=== PATIENT | female | born 1980 | race Caucasian/White ===

== ENCOUNTER → 2022-11-21 14:59 | Outpatient (CLI) | payer BC, SELFPAY ==
--- NOTE | ~2022-11-21 | MM_ITS ---
EXAMINATION: MM screening miles BI w rodney HISTORY: Screening mammogram TECHNIQUE: Craniocaudal and mediolateral oblique 3-D tomosynthesis images were obtained and synthetic 2-D images were generated. CAD analysis was submitted and interpreted. COMPARISON: No prior mammogram is available for comparison at this institution. BREAST PARENCHYMAL COMPOSITION: There are scattered areas of fibroglandular density. FINDINGS: Right breast: There is a 1 cm asymmetric irregular opacity in the inner mid to upper right breast. Di agnostic right mammogram and right breast ultrasound examination are recommended. Left breast: There is no evidence of suspicious mass, calcification, or architectural distortion to s uggest malignancy in the left breast. IMPRESSION: 1. Abnormal asymmetric irregular mammographic opacity in the inner mid to upper right breast 2. Diagnostic right mammogram and right breast ultrasound examination are recommended BI-RADS Category 0: Incomplete: Needs additional imaging evaluation. Reviewed, dictated and finalized at location A. IMPRESSION: 1. Abnormal asymmetric irregular mammographic opacity in the inner mid to upper right breast 2. Diagnostic right mammogram and right breast ultrasound examination are recom mended BI-RADS Category 0: Incomplete: Needs additional imaging evaluation.
== END ==
PROVIDERS: PCP Nurse Practitioner Obstetrics & Gynecology; Visit Provider Nurse Practitioner Obstetrics & Gynecology
DX: Z12.31 Encounter for screening mammogram for malignant neoplasm of breast (principal); N64.89 Other specified disorders of breast
CPT/HCPCS: 77063; 77067

== ENCOUNTER → 2022-12-19 07:48 | Outpatient (CLI) | payer BC, SELFPAY ==
--- NOTE | ~2022-12-19 | MMUS_ITS ---
EXAMINATION: MM diagnostic miles RT w rodney, US breast RT limited HISTORY: Asymmetric irregular opacity at anterior medial right breast on 11/21/2022 screening mammogra m TECHNIQUE: Additional 3-D tomosynthesis images of the right breast were performed and synthetic 2-D i mages were generated. CAD analysis was submitted and interpreted. High resolution upper inner and low er inner quadrant right breast ultrasound was performed. COMPARISON: 11/21/2021 bilateral screening mammogram FINDINGS: MAMMOGRAPHIC FINDINGS: No suspicious mass or architectural distortion, malignant calcifications, skin thickening or retracti on is evident. The previously reported asymmetric opacity largely compresses out on coned compression views. ULTRASOUND: There is no sonographic correlate for the mammographic asymmetry reported on 11/21/2022 mammogram. At 12:00 2 cm from the nipple there is an approximately 2.4 x 2.8 x 4 mm circumscribed sonolucency, w ithout internal vascularity, likely a small cyst. At 12:00 3 cm from the nipple there is a similar approximately 2.5 x 3.4 x 3.2 mm circumscribed sonol ucency without internal vascularity, likely a small cyst. No suspicious mass of the upper inner and lower inner quadrants of the right breast is noted. IMPRESSION: 1. Benign findings; no mammographic evidence of malignancy 2. Routine annual mammographic screening is recommended. BI-RADS Category 2: Benign finding(s). Reviewed, dictated and finalized at location A. IMPRESSION: 1. Benign findings; no mammographic evidence of malignancy 2. Routine annual mammographic screening is recommended. BI-RADS Category 2: Benign finding(s).
== END ==
PROVIDERS: PCP Nurse Practitioner Obstetrics & Gynecology; Visit Provider Nurse Practitioner Obstetrics & Gynecology
DX: R92.8 Other abnormal and inconclusive findings on diagnostic imaging of breast (principal)
CPT/HCPCS: 76642; 77061; 77065; G0279

== ENCOUNTER 2025-01-19 12:21 | Emergency (ER) | payer OTHER, SELFPAY ==
[2025-01-19 12:38] VITALS: BP 127/88; PULSE 85; RESP 16; TEMP 36.2; O2SAT 100
--- NOTE | 2025-01-19 14:01 | ED.URI ---
HPI - URI/Sore Throat General Chief Complaint: Upper Respiratory Infection Stated Complaint: URI Time Seen by Provider: 01/19/25 13:55 Source: patient and RN notes reviewed Mode of arrival: ambulatory Limitations: no limitations History of Present Illness HPI Narrative: 44-year-old female patient presents today with a 2 week history of nasal congestion, sinus pressure, headache bilateral ear pain, barking cough with chest wall discomfort. She has tried Tylenol Sinus without relief. Denies fever or shortness of breath. Denies history of asthma or COPD. Related Data Allergies Allergy/AdvReac Type Severity Reaction Status Date / Time No Known Allergies Allergy Verified 01/19/25 12:34 [facility] Comments At time of signature, I have reviewed and agree with nursing past medical, surgical, social and family history unless otherwise noted. Please see nursing chart for further information. There is no relevant family history pertinent to the presenting complaint Exam Narrative: GENERAL: Mildly ill-appearing, well-nourished, and in no acute distress. HEAD: Normocephalic, atraumatic. EYES: EOMI. No redness or drainage. Conjunctivae normal. ENT: Mucous membranes pink and moist. Nares congested with rhinorrhea. TMs normal bilaterally. Throat normal. Uvula midline. NECK: Normal AROM. Supple. No lymphadenopathy. CHEST: No respiratory distress. Clear to auscultation. Harsh cough noted HEART: Regular rate and rhythm. No murmur appreciated. EXTREMITIES: Normal range of motion. No edema. SKIN: Warm, dry, no rash. Capillary refill normal. Normal skin turgor. NEURO: No focal deficits. Alert and oriented x3. Gait steady. PSYCH: Normal affect. No signs of depression or anxiety. Course Course Level of Care: Express Care Visit Vital Signs Vital signs: Vital Signs Temperature 97.1 F L 01/19/25 12:38 Pulse Rate 85 01/19/25 12:38 Respiratory Rate 16 01/19/25 12:38 Blood Pressure 127/88 01/19/25 12:38 Pulse Oximetry 100 01/19/25 12:38 Oxygen Delivery Room Air 01/19/25 12:38 Temperature 97.1 F L 01/19/25 12:38 Pulse Rate 85 01/19/25 12:38 Respiratory Rate 16 01/19/25 12:38 Blood Pressure 127/88 01/19/25 12:38 Pulse Oximetry 100 01/19/25 12:38 Oxygen Delivery Room Air 01/19/25 12:38 Review MDM - URI/Sore Throat MDM Narrative Medical decision making narrative: 44-year-old female patient presents today with a 2 week history of nasal congestion, sinus pressure, headache bilateral ear pain, barking cough with chest wall discomfort. She has tried Tylenol Sinus without relief. Denies fever or shortness of breath. Denies history of asthma or COPD. Upon exam, patient is mildly ill appearing with nasal congestion and harsh cough. She will be treated with Augmentin and prednisone for sinusitis, bronchitis. Declines cough medicine. Patient agrees with plan. Vital signs stable. Anticipatory guidance given. Differential Diagnosis Differential diagnosis: Likely upper respiratory infection, otitis media, sinusitis, viral infection, bronchitis and other (Pneumonia) Critical Care Time Critical Care Time Critical Care Time: No Discharge Plan Discharge Clinical Impression: Bronchitis Sinusitis Qualifiers: Sinusitis location: unspecified location Chronicity: acute Recurrence: non-recurrent Qualified Code(s): J01.90 - Acute sinusitis, unspecified Patient Disposition: Home Condition: Stable Instructions: Antibiotic Form, Sinusitis (ED), Acute Bronchitis (ED) Additional Instructions: Please take the Augmentin and prednisone as directed. You may continue [id number] medication as needed. Follow-up with your PCP in 3 days if symptoms are not improving. Go to the ER immediately if symptoms worsen to include development of new fever greater than 100.3, shortness of breath. Patient Language: Mauritanian Prescriptions: New prednisone 50 mg tablet 50 mg PO DAILY 5 Days Qty: 5 0RF amoxicillin-pot clavulanate 875-125 mg tablet 1 tablet PO Q12H 7 Days Qty: 14 0RF Follow-up/Referrals: Yaron,Dali Tovar, CARLOS [Primary Care Provider, Unknown] Time of Disposition: 14:04
--- OUTSIDE RECORDS SUMMARY | 2025-01-19 14:09 | XMS_ITS | Encounter Summary ---
Author Organization [facility] Address [facility] [place] [address] Care Team Providers Care Embedded Systems Developer Name Role Phone Marybeth Rolon IRA [facility] Primary Care Provider + Encounter Details Date Type Department Care Team (Late st Contact Info) Description 08/04/2021 Crack Message Enc [facility] [address] [address] [place], [facility] Provider echo results Social History Tobacco Use Types Packs/Day Years Used Date Smoking Tobacco: Never Smokeless Tobacco: Never Alcohol Use Standard Drinks/Week Comments Yes 0 (1 standard drink = 0.6 oz pur e alcohol) 1x/month Comments Unknown Sex and Gender Information Value Date Recorded Sex Assigned at Not on file Legal Sex Female 9:28 PM GAS TURBINE MECHANIC Gender Identity Not on file Sexual Orientation Not on file 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 No / Unsure 08/01/2021 1:18 PM CDT documented as of this encounter Plan of Treatment Not on file documented as of this encounter Visit Diagnoses Not on filedocumented in this encounter Care Teams Embedded Systems Developer Relationship Specialty Start Date End Date [facility]on [facility] [address] [place] [id number] PCP - General NURSE PRACTITIONER 06/07/21 documented as of this encounter
--- OUTSIDE RECORDS SUMMARY | 2025-01-19 14:10 | XMS_ITS | Clinical Summary ---
Author Organization [facility] [address] Address [address] [place] [address] Care Team Providers Care Marriage And Family Teacher Name Role Phone Oumar Villasenor MD Primary Care Provider [phone] Dali Marrufo HEATING ELEMENT BUILDER Unavailable [phone] Allergies No known active allergies Medications pantoprazole DR (PROTONIX) 40 mg EC tablet take 1 tablet by ORAL route 2 times every day 0 0 6 Active escitalopram (LEXAPRO) 5 mg tablet 5 mg. 0 0 6 Active sodium, potassium & mag sulfates (SUPREP BOWEL PREP KIT) 17.5-3.13-1.6 gram recon soln take as directed for Colonoscopy bowel prep 1 kit 0 6 Active Family History Medical History Relation Name Comments Other Other 1 No family histo ry of Cancer, colon; Other Other 2 No family histo ry of Celiac disease; Other Other 3 No family histo ry of Colon polyps; Other Other 4 No family histo ry of Crohn's disease; Other Other 5 No family histo ry of Ulcerative colitis; Relation Name Status Comments Other 1 Other 2 Other 3 Other 4 Other 5 Social History Tobacco Use Types Packs/Day Years Used Date Smoking Tobacco: Never Alcohol Use Standard Drinks/Week Comments No 0 (1 standard drink = 0.6 oz pur e alcohol) Comments Unknown Sex and Gender Information Value Date Recorded Sex Assigned at Not on file Legal Sex Female 9:19 PM ONCOLOGY REGISTRAR Gender Identity Not on file Sexual Orientation Not on file Last Filed Vital Signs Vital Sign Reading Time Taken Comments Blood Pressure 109/76 03/25/2015 11:24 AM ONCOLOGY REGISTRAR Pulse 94 03/25/2015 11:24 AM ONCOLOGY REGISTRAR Temperature - - Respiratory Rate - - Oxygen Saturation 96% 02/25/2015 11:12 AM ONCOLOGY REGISTRAR Inhaled Oxygen Concentration - - Weight 102.5 kg (226 lb) 03/25/2015 11:24 AM ONCOLOGY REGISTRAR Height 160 cm (5' 3) 02/25/2015 6:39 AM ONCOLOGY REGISTRAR Body Mass Index 40.03 02/25/2015 6:39 AM ONCOLOGY REGISTRAR Plan of Treatment Health Maintenance Due Date Last Done Comments Cervical Cancer Screening 1979 Depression Screening 1979 Hepatitis C Screening 1979 Varicella Vaccines (1 of 2 - 13+ 2-dose series) 06/02/1992 Hepatitis B Screening 06/02/1997 Regular Well Visit/Exam 18-64 06/02/1997 HPV Vaccines (1 - 3-dose SCD M series) 06/02/2006 Influenza Vaccine (#1) 2024 Colon Cancer Screening-Colonoscopy 04/08/2025 04/08/2015 Breast Cancer Screening-Mammogram 05/02/2025 05/02/2024, 07/05/2021, 07/05/2021 DTaP/Tdap/Td Vaccine (2 - Td or Tdap) 05/09/2028 05/09/2018 Pneumococcal vaccine <65 Aged Out No longer eligible based on patient's age to complete this topic Procedures Procedure Name Priority Date/Time Associated Diagnosis Comments SCREENING MAMMOGRAM BILATERAL W RODRIGO Schedule Routine, Read Routine (OP Routine) 05/02/2024 3:32 PM ONCOLOGY REGISTRAR Encounter for screening mammogram for malignant neoplasm of breast COLONOSCOPY REPORT 04/08/2015 from Last 3 Months or Most Recently Relevant to Health Maintenance Results * Screening Mammogram Bilateral W Rodrigo (05/02/2024 3:32 PM ONCOLOGY REGISTRAR) Anatomical Region Laterality Modality Breast Bilateral Mammography Narrative 05/05/2024 11:51 AM CDT Mammogram Technique: Bilateral Digital Breast Tomosynthesis, Bilateral C-view 2D Screening mammogram. Views obtained: bilateral craniocaudal and bilateral mediolateral oblique. Computer Aided Detection was performed. Mammogram Findings: The present examination has been compared to a prior imaging study performed at [facility] on 07/05/2021. There are scattered areas of fibroglandular density. There is no suspicious abnormality in either breast. Impression: There is no mammographic evidence of malignancy. Annual screening mammography is recommended. OVERALL FINAL ASSESSMENT: BI-RADS CATEGORY 1: Negative. Procedure Note Trupti Hu MD - 05/05/2024 Mammogram Technique: Bilateral Digital Breast Tomosynthesis, Bilateral C-view 2D Screening mammogram. Views obtained: bilateral craniocaudal and bilateral mediolateral oblique. Computer Aided Detection was performed. Mammogram Findings: The present examination has been compared to a prior imaging study performed at [facility] on 07/05/2021. There are scattered areas of fibroglandular density. There is no suspicious abnormality in either breast. Impression: There is no mammographic evidence of malignancy. Annual screening mammography is recommended. OVERALL FINAL ASSESSMENT: BI-RADS CATEGORY 1: Negative. Dali Marrufo NP IMG MAMMO PROCEDURES Fi nal Result * COLONOSCOPY REPORT (04/08/2015) Anatomical Region Laterality Modality Other Narrative 04/08/2015 Ordered by an unspecified provider. Historical Provider MD NAGY PROCEDURE ORDERABLES F inal Result from Last 3 Months or Most Recently Relevant to Health Maintenance Insurance [facility] AETNA COVENTRY HMO/POS AETNA COVENTRY HMO/POS Care Teams Marriage And Family Teacher Relationship Specialty Start Date End Date Oumar Villasenor MD [address] [place] [address] [place] [address] PCP - General Family Medicine 04/15/24 Dali Marrufo NP [address] [place] [address] Nurse Practitioner 04/15/24
--- OUTSIDE RECORDS SUMMARY | 2025-01-19 14:10 | XMS_ITS | Encounter Summary ---
Author Organization [facility] Address [facility] [place] [address] Care Team Providers Care Motor Overhauler Name Role Phone Gonzales, Marybeth Mao [facility] Primary Care Provider + Encounter Details Date Type Department Care Team (Late st Contact Info) Description 06/27/2021 Abstract [facility] [place] [id number] [facility] [address] [place] [address] Prasanth Garcia, A Social History Tobacco Use Types Packs/Day Years Used Date Smoking Tobacco: Never Smokeless Tobacco: Never Alcohol Use Standard Drinks/Week Comments Yes 0 (1 standard drink = 0.6 oz pur e alcohol) 1x/month Comments Unknown Sex and Gender Information Value Date Recorded Sex Assigned at Not on file Legal Sex Female 9:28 PM TOBACCO WEIGHER Gender Identity Not on file Sexual Orientation Not on file 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 No / Unsure 06/27/2021 9:39 AM CDT documented as of this encounter Plan of Treatment Not on file documented as of this encounter Procedures Procedure Name Priority Date/Time Associated Diagnosis Comments FREE T3 Routine 06/22/2021 IRON BINDING TEST Routine 06/22/2021 THYROXINE, FREE (FT4) Routine 06/22/2021 THYROID STIM HORMONE TSH Routine 06/22/2021 IRON Routine 06/22/2021 FERRITIN Routine 06/22/2021 TROPONIN WHOLE BLOOD Routine 06/15/2021 CBC (OUTSIDE LAB) Routine 06/15/2021 COMPREHENSIVE METABOLIC PANEL Routine 06/15/2021 THYROID STIM HORMONE TSH Routine 06/15/2021 documented in this encounter Results * THYROXINE, FREE (FT4) (06/22/2021) FREE T4 1.2 06/22/2021 [facility]AT[facility] Final Result * THYROID STIM HORMONE, TSH (06/22/2021) TSH 2.08 06/22/2021 us Doc [facility] Final Result * FREE T3 (06/22/2021) FREE T3 3.1 06/22/2021 us [facility] Final Result * FERRITIN (06/22/2021) FERRITIN 7 06/22/2021 us [facility] Final Result * IRON (06/22/2021) IRON 43 06/22/2021 [facility] Final Result * IRON BINDING TEST (06/22/2021) Pathologist [facility] IRON BINDING CAPACITY 357 06/22/2021 us [facility] Final Result * TROPONIN WHOLE BLOOD (06/15/2021) [facility] TROPONIN I <0.01 06/15/2021 us [facility] Final Result * THYROID STIM HORMONE, TSH (06/15/2021) [facility] TSH 2.05 06/15/2021 us Doc [facility] Final Result * COMPREHENSIVE METABOLIC PANEL (06/15/2021) [facility] SODIUM S/P/B 141 POTASSIUM S/P/B 3.7 CO2 26 CHLORIDE S/P/B 106 GLUCOSE 95 mg/dL CALCIUM S/P/B 9.0 BUN 15 CREATININE S/P/B 0.7 0.5 - 1.0 ALKALINE PHOSPHATASE S/P/B 69 ALT 21 AST 23 BILIRUBIN TOTAL S/P/B 0.3 ALBUMIN S/P/B 4.5 3.5 - 5.0 TOTAL PROTEIN S/P/B 7.9 06/15/2021 us Doc [facility] Final Result * CBC (OUTSIDE LAB) (06/15/2021) [facility] WBC 6.1 HGB 129 HCT 407 PLT 298 RBC 4.95 06/15/2021 [facility] Doc [facility] Abstract LAB-OUTSIDE/ABSTRACTED Final Result documented in this encounter Visit Diagnoses Not on filedocumented in this encounter Care Teams Motor Overhauler Relationship Specialty Start Date End Date Marybeth Rolon, INDOOR LANDSCAPER/GARDENER-BC [address] [place] [address] PCP - General NURSE PRACTITIONER 06/07/21 documented as of this encounter
--- OUTSIDE RECORDS SUMMARY | 2025-01-19 14:10 | XMS_ITS | Clinical Summary ---
Author Organization [facility] Address [address] [place] [address] Care Team Providers Care Cyanide Case Hardener Name Role Phone Marybeth Rolon Mao [facility] Primary Care Provider + Allergies No known active allergies Medications ENBREL SURECLICK 50 MG/ML Solution Auto-injector injection Inject 50 mg into the skin once a week. 06/07/2021 Active venlafaxine XR 75 MG 24 hr capsule Take 75 mg by mouth daily. 06/24/2021 Active methotrexate 2.5 MG tablet Take 8 tablets by mouth once a week. 11/04/2020 Active Active Problems Problem Noted Date Diagnosed Date Anxiety 06/27/2021 Rheumatoid factor positive 06/13/2018 Fibromyalgia 06/13/2018 Hyperlipidemia 05/09/2018 Antinuclear factor positive 05/09/2018 Palpitations 06/06/2017 Family History Medical History Relation Comments Diabetes Father Thyroid Disease Father Afib Mother Hypertension Mother Pacemaker Mother No Known Problems Paternal Grandfather No Known Problems Paternal Grandmother Relation Status Comments Brother Alive Father Alive Maternal Grandfather Maternal Grandmother Mother Alive Paternal Grandfather Paternal Grandmother Social History Tobacco Use Types Packs/Day Years Used Date Smoking Tobacco: Never Smokeless Tobacco: Never Alcohol Use Standard Drinks/Week Comments Yes 0 (1 standard drink = 0.6 oz pur e alcohol) 1x/month Comments Unknown Sex and Gender Information Value Date Recorded Sex Assigned at Not on file Legal Sex Female 9:28 PM INSIDE HORTICULTURAL SPECIALTY GROWER Gender Identity Not on file Sexual Orientation Not on file 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 Not on file Not on f ile Last Filed Vital Signs Vital Sign Reading Time Taken Comments Blood Pressure 94/66 06/27/2021 9:47 AM CDT Pulse 105 06/27/2021 9:47 AM CDT Temperature - - Respiratory Rate - - Oxygen Saturation 99% 06/27/2021 9:47 AM CDT Inhaled Oxygen Concentration - - Weight 101.6 kg (224 lb) 06/27/2021 9:47 AM CDT Height 162.6 cm (5' 4) 06/27/2021 9:47 AM CDT Body Mass Index 38.45 06/27/2021 9:47 AM CDT Plan of Treatment Health Maintenance Due Date Last Done Comments Cervical Cancer Screening Pa p Smear (Age 30 to 64) Every 3 Years 1979 Colorectal Cancer Screening Colonoscopy (10 Years) 1979 Annual Physical 06/02/1982 COVID-19 Vaccine (#1) 06/02/1984 Hepatitis C 06/02/1997 Hepatitis B Vaccines (1 of 3 - 19+ 3-dose series) 06/02/1998 HPV Vaccines (1 - 3-dose SCD M series) 06/02/2006 Cervical Cancer Screening Pa p with HPV Testing (Age 30 to 64) Every 5 Years 06/02/2009 Cervical Cancer Screening with HPV 06/02/2009 Mammogram Screening 2019 Influenza Adult (#1) 2024 DTaP, Tdap and Td Vaccines ( 2 - Td or Tdap) 05/09/2028 05/09/2018 Hepatitis A Vaccines Aged Out No long er eligible based on patient's age to complete this topic Meningococcal B Vaccine Aged Out No l onger eligible based on patient's age to complete this topic Meningococcal Vaccine Aged Out No chaz cydney eligible based on patient's age to complete this topic Pneumococcal Vaccine: Pediat rics (0 to 5 Years) and At-Risk Patients (6 to 49 Years) Aged Out No longer eligi ble based on patient's age to complete this topic RSV Immunizations Under 20 Months Aged Out No longer eligible based on patient's age to complete this topic Insurance [facility] Care Teams Cyanide Case Hardener Relationship Specialty Start Date End Date Marybeth Rolon, CORPORATE DIRECTOR- [address] [address] PCP - General NURSE PRACTITIONER 06/07/21
--- OUTSIDE RECORDS SUMMARY | 2025-01-19 14:10 | XMS_ITS | Data Portability ---
Author Organization [facility] Address [address] [place] [address] Care Team Providers [facility] Manager Name Role Phone MEMO CARVALHO OTHER Assessment Encounter Date Assessment Date Assessment LastModified by Organization Details LastModified Time 11/14/2022 11/14/2022 Today we agreed to start a work up for multiple complaints. We will fax any results to appropriate specialist if required. We will update TVUS for menorrhagia with increasingly worse dysmenorrhea. Discussed perimenopause. Understanding verbalized Recommendations for reading material given WIll refer as needed Needs WWE Time spent in visit is a total of 30 mins with at least 50% of visit consisting of counseling and review of plan of care. [email or web address] Not available 11/14/2022 19:10:04 11/21/2022 11/21/2022 Annual gynecological exam performed. Patient will come back in a year unless there are new symptoms. [email or web address] Not available 11/21/2022 09:09:39 Plan of Treatment Reminders Order Date Submit Date Provider Last Modified By Organization Details Last Modified Time Details Appointments None recorded. Lab vitamin B12, serum 2022 023 [facility] (Lab), [address], [place], [address], 3 16:00:16 vitamin D, 25-hydroxy, total, serum 2022 023 [facility] (Lab), [address], [place], [address], 3 16:00:17 testosteron e, total, serum 2022 023 [facility] (Lab), [address], [place], [address], 3 16:00:14 17-hydroxyp rogesterone , QN, serum 2022 023 [facility] (Lab), [address], [place], [address], 3 16:00:19 hormone panel, serum or plasma 2022 023 [facility] (Lab), [address], [place], [address], 3 16:00:18 prolactin, serum 2022 023 [facility] (Lab), [address], [place], [address], 3 16:00:17 CMP, serum or plasma 2022 023 [facility] (Lab), [address] [place], [address], 3 16:00:15 lipid panel, blood 2022 023 [facility] (Lab), [address], [place], [address], 3 16:00:15 CBC w/ auto diff 2022 023 [facility] (Lab), [address] [place], [address], 3 16:00:13 HbA1c (hemoglobin A1c), blood 2022 023 [facility] (Lab), [address] [place], [address], 3 16:00:18 TSH, serum or plasma 2022 023 [facility] (Lab), [address], [place], [address], 3 16:00:16 Referral None recorded. Procedures None recorded. Surgeries None recorded. Imaging MAMMO, screening, digital, bilateral 2022 023 [facility], [facility] [id number], [place], [address], 3 17:57:31 US, pelvis 2022 023 [email or web address] [facility], [address], [address], [place], [address], 3 12:45:11 US, transvagina l 2022 023 [facility], [address], [address], [place], [address], 3 12:45:11 US, pelvis, complete 2022 023 [email or web address] [facility], [address], [address], [place], [address], 3 09:56:20 US, pelvis 2021 022 [email or web address] [facility], [address], [address], [place], [address], 2 22:21:38 US, transvagina l 2021 022 [email or web address] [facility], [address], [address], [place], [address], 2 22:21:38 Medication Orders Slynd 4 mg (28) tablet 2022 023 KENNETH [id number], [address], [place], [place], [id number], 3 09:40:13 Vitamin D2 1,250 mcg (50,000 unit) capsule 2022 023 [place] [id number], [address], [place], [place], [id number], 3 09:24:16 Slynd 4 mg (28) tablet 2022 023 [email or web address] Not available 3 14:10:33 Patient TargetsNo targets recorded. Patient InstructionsNo instructions recorded. Reason for Referral None Reported. Results Created Date Observation Date Name Description Value Unit Range Abnormal Flag Note LastModifiedBy Organization Detail LastModifiedTime 11/15/1911/14/2022 CBC W/DIF F WBC 6.3 10'3/ uL 3.6-10 .2 Not Available [facility] (Lab) [address] [place], [address], 11/21/2022 16:00:13 11/15/19 23 11/14/2022 CBC W/DIF F RBC 4.51 10'6/ uL (based on docume nted legal sex) 4.10-5 .30 Not Available [facility] (Lab) [address] [place], [address], 11/21/2022 16:00:13 11/15/19 23 11/14/2022 CBC W/DIF F HGB 11.4 g/dL (based on docume nted legal sex) 11.9-1 5.8 low Not Available [facility] (Lab) [address] [place], [address], 11/21/2022 16:00:13 11/15/19 23 11/14/2022 CBC W/DIF F HCT 37.0 % (based on docume nted legal sex) 37.4-4 8.3 low Not Available [facility] (Lab) [address], [place], [address], 11/21/2022 16:00:13 11/15/19 23 11/14/2022 CBC W/DIF F MCV 82.0 fL 82.0-9 9.0 Not Available [facility] (Lab) [address], [place], [address], 11/21/2022 16:00:13 11/15/19 23 11/14/2022 CBC W/DIF F MCH 25.3 pg 27.0-3 3.0 low Not Available [facility] (Lab) [address], [place], [address], 11/21/2022 16:00:13 11/15/19 23 11/14/2022 CBC W/DIF F MCHC 30.8 g/dL 32.0-3 6.0 low Not Available [facility] (Lab) [address], [place], [address], 11/21/2022 16:00:13 11/15/19 23 11/14/2022 CBC W/DIF F RDW 15.7 % 11.0-1 5.0 high Not Available [facility] (Lab) [address], [place], [address], 11/21/2022 16:00:13 11/15/19 23 11/14/2022 CBC W/DIF F plt 297 10'3/ uL 150-45 0 Not Available [facility] (Lab) [address], [place], [address], 11/21/2022 16:00:13 11/15/19 23 11/14/2022 CBC W/DIF F MPV 13.0 fL 9.8-12 .7 high Not Available [facility] (Lab) [address], [place], [address], 11/21/2022 16:00:13 11/15/19 23 11/14/2022 CBC W/DIF F NRBC's 0.0 % 0 Not Available [facility] (Lab) [address], [place], [address], 11/21/2022 16:00:13 11/15/19 23 11/14/2022 CBC W/DIF F absolute NRBCs 0.0 10'3/ uL 0 Not Available [facility] (Lab) [address], [place], [address], 11/21/2022 16:00:13 11/15/19 23 11/14/2022 CBC W/DIF F neutrophils 47.2 % 37.0-7 2.0 Not Available [facility] (Lab) [address], [place], [address], 11/21/2022 16:00:13 11/15/19 23 11/14/2022 CBC W/DIF F lymphocytes 41.2 % 16.0-4 8.0 Not Available [facility] (Lab) [address], [place], [address], 11/21/2022 16:00:13 11/15/19 23 11/14/2022 CBC W/DIF F monocytes 6.2 % 4.0-14 .0 Not Available [facility] (Lab) [address], [place], [address], 11/21/2022 16:00:13 11/15/19 23 11/14/2022 CBC W/DIF F eosinophils 4.3 % 0.0-9. 0 Not Available [facility] (Lab) [address], [place], [address], 11/21/2022 16:00:13 11/15/19 23 11/14/2022 CBC W/DIF F basophils 0.9 % 0.0-2. 0 Not Available [facility] (Lab) [address], [place], [address], 11/21/2022 16:00:13 11/15/19 23 11/14/2022 CBC W/DIF F immature granulocytes 0.2 % no define d refere nce range Not Available [facility] (Lab) [address], [place], [address], 11/21/2022 16:00:13 11/15/19 23 11/14/2022 CBC W/DIF F absolute neutrophils 3.0 10'3/ uL 1.1-6. 0 Not Available [facility] (Lab) [address], [place], [address], 11/21/2022 16:00:13 11/15/19 23 11/14/2022 CBC W/DIF F absolute lymphocytes 2.6 10'3/ uL 0.7-3. 4 Not Available [facility] (Lab) [address], [place], [address], 11/21/2022 16:00:13 11/15/19 23 11/14/2022 CBC W/DIF F absolute monocytes 0.4 10'3/ uL 0.3-1. 0 Not Available [facility] (Lab) [address], [place], [address], 11/21/2022 16:00:13 11/15/19 23 11/14/2022 CBC W/DIF F absolute eosinophils 0.3 10'3/ uL 0.0-0. 6 Not Available [facility] (Lab) [address], [place], [address], 11/21/2022 16:00:13 11/15/19 23 11/14/2022 CBC W/DIF F absolute basophils 0.1 10'3/ uL 0.0-0. 1 Not Available [facility] (Lab) [address], [place], [address], 11/21/2022 16:00:13 11/15/19 23 11/14/2022 CBC W/DIF F absolute immature granulocytes 0.0 10'3/ uL 0.00-0 .10 2022 3:13 AM: P indic ates parti al resul ts on a panel have been relea sed. Addit ional resul ts will follo w. 2022 3:13 AM: This resul t has been final verif ied. No addit ional or pitts ed resul ts are expec bonita. Not Available [facility] (Lab) [address], [place], [address], 11/21/2022 16:00:13 11/15/19 23 11/14/2022 TESTO STERO NE, TOTAL testosterone , total 44 NG/dL 0-100 Not Available [facility] (Lab) [address], [place], [address], 11/21/2022 16:00:14 11/15/19 23 11/14/2022 LIPID PANEL ,AMA (LDL- CALC) total cholesterol 170 mg/dL 0-199 Not Available [facility] (Lab) [address] [place], [address], 11/21/2022 16:00:14 11/15/19 23 11/14/2022 LIPID PANEL ,AMA (LDL- CALC) triglyceride s 113 mg/dL 0.00-1 50.00 NCEP Refer ence Value s for Trigl yceri geena: Agnes l: <150 mg/dL Borde rline High: 150 - 199 mg/dL High: 200 - 499 mg/dL Very High: >/= 500 mg/dL Not Available [facility] (Lab) [address] [place], [address], 11/21/2022 16:00:14 11/15/19 23 11/14/2022 LIPID PANEL ,AMA (LDL- CALC) HDL cholesterol 45 mg/dL >40 Not Available [facility] (Lab) [address] [place], [address], 11/21/2022 16:00:14 11/15/19 23 11/14/2022 LIPID PANEL ,AMA (LDL- CALC) LDL cholesterol 104 mg/dL 0-99 high Cutof f value s recom lucero d by the Natio nal Jenna stero l Educa tion Progr am: MARY ABLE: Jenna stero l <200 mg/dL LDL <100 mg/dL BORDE RLINE : Jenna stero l 200-2 39 mg/dL LDL 101-1 59 mg/dL HIGHE R RISK: Jenna stero l >240 mg/dL LDL >160 mg/dL , HDL <40 mg/dL Not Available [facility] (Lab) [address], [place], [address], 11/21/2022 16:00:14 11/15/1911/14/2022 LIPID PANEL ,AMA (LDL- CALC) non-HDL cholesterol 125 mg/dL no refere nce range A reaso nable goal for non-H DL jenna stero l is one that is 30 mg/dL highe r than the LDL jenna stero l goal. Not Available [facility] (Lab) [address], [place], [address], 11/21/2022 16:00:14 11/15/1911/14/2022 LIPID PANEL ,AMA (LDL- CALC) chol/HDL ratio 3.8 . 0.0-5. 0 On June 20, 2022, [facility] labor atori juliocesar pitts ed the equat ion for calcu latin g estim ated low-d ensit y lipop rotei n-cho leste rol (LDL- C) from the Corinne sweetald equat ion to the Jessica soriano/David arredondo equat ion. This new equat ion is only valid for lipid panel s with trigl yceri geena < 400 mg/dL . Studi es have demon strat ed that this new equat ion will impro ve the accur acy of LDL-C , espec ially in [place] when LDL-C saida ntrat ions are relat ively low (< 100 mg/dL ), trigl yceri geena are eleva bonita, or patie nt is non-f astin g. Refer ences : - Pierre Miller, Niraj Toro , Mirza fuller, Nii Zuniga, Iraj [facility]if [facility] , and Samuel Martin . 2013. Comp ariso n of a Novel Metho d vs the Fried gary Equat ion for Estim ating Low-D ensit y Lipop rotei n Jenna stero l Level s from the Stand ming Lipid Profshannon farrar. NELIA: The Journ al of the Ameri can Medic al Assoc iatio n 310 (19): 2060- . - Binta alston V, Sindi J, Liliya alston A, Diandra M, Heidi booker R, Taras alston E, Mary patel RS, Mario SR, Jessica soriano SS. Fast ing Versu s Nonfa sting and Low-D ensit y Lipop rotei n Jenna stero l Accur acy. Circu latio n. 2017Feb 27;137 (1):1 0-19. Not Available [facility] (Lab) [address], [place], [address], 11/21/2022 16:00:14 11/15/19 23 11/14/2022 CMP(C OMPRE HENSI VE METAB OLIC PANEL ) sodium 143 mmol/ L 133-14 6 Not Available [facility] (Lab) [address], [place], [address], 11/21/2022 16:00:15 11/15/19 23 11/14/2022 CMP(C OMPRE HENSI VE METAB OLIC PANEL ) potassium 4.0 mmol/ L 3.5-5. 1 Not Available [facility] (Lab) [address], [place], [address], 11/21/2022 16:00:15 11/15/19 23 11/14/2022 CMP(C OMPRE HENSI VE METAB OLIC PANEL ) chloride 106 mmol/ L 98-107 Not Available [facility] (Lab) [address], [place], [address], 11/21/2022 16:00:15 11/15/19 23 11/14/2022 CMP(C OMPRE HENSI VE METAB OLIC PANEL ) carbon dioxide 30 mmol/ L 21-31 Not Available [facility] (Lab) [address], [place], [address], 11/21/2022 16:00:15 11/15/19 23 11/14/2022 CMP(C OMPRE HENSI VE METAB OLIC PANEL ) anion gap 7 mmol/ L 4-13 Not Available [facility] (Lab) [address], [place], [address], 11/21/2022 16:00:15 11/15/19 23 11/14/2022 CMP(C OMPRE HENSI VE METAB OLIC PANEL ) blood urea nitrogen 10 mg/dL 7-25 Not Available [facility] (Lab) [address], [place], [address], 11/21/2022 16:00:15 11/15/19 23 11/14/2022 CMP(C OMPRE HENSI VE METAB OLIC PANEL ) creatinine 0.89 mg/dL 0.60-1 .30 Not Available [facility] (Lab) [address], [place], [address], 11/21/2022 16:00:15 11/15/19 23 11/14/2022 CMP(C OMPRE HENSI VE METAB OLIC PANEL ) egfrcr (CKD-epi 2020) 82 mL/mi n/1.7 3_m2 >=60 Not Available [facility] (Lab) [address], [place], [address], 11/21/2022 16:00:15 11/15/19 23 11/14/2022 CMP(C OMPRE HENSI VE METAB OLIC PANEL ) calcium 9.6 mg/dL 8.3-10 .5 Not Available [facility] (Lab) [address], [place], [address], 11/21/2022 16:00:15 11/15/19 23 11/14/2022 CMP(C OMPRE HENSI VE METAB OLIC PANEL ) glucose 92 mg/dL 70-100 Not Available [facility] (Lab) [address] [place], [address], 11/21/2022 16:00:15 11/15/19 23 11/14/2022 CMP(C OMPRE HENSI VE METAB OLIC PANEL ) protein, total 7.0 g/dL 6.4-8. 3 Not Available [facility] (Lab) [address], [place], [address], 11/21/2022 16:00:15 11/15/19 23 11/14/2022 CMP(C OMPRE HENSI VE METAB OLIC PANEL ) albumin 3.8 g/dL 3.5-5. 0 Not Available [facility] (Lab) [address], [place], [address], 11/21/2022 16:00:15 11/15/19 23 11/14/2022 CMP(C OMPRE HENSI VE METAB OLIC PANEL ) ALT 12 units /L 9-43 Not Available [facility] (Lab) [address], [place], [address], 11/21/2022 16:00:15 11/15/19 23 11/14/2022 CMP(C OMPRE HENSI VE METAB OLIC PANEL ) alkaline phosphatase 65 units /L 34-104 Not Available [facility] (Lab) [address], [place], [address], 11/21/2022 16:00:15 11/15/19 23 11/14/2022 CMP(C OMPRE HENSI VE METAB OLIC PANEL ) AST 12 units /L 13-39 low Not Available [facility] (Lab) [address], [place], [address], 11/21/2022 16:00:15 11/15/19 23 11/14/2022 CMP(C OMPRE HENSI VE METAB OLIC PANEL ) bilirubin, total 0.3 mg/dL 0.2-1. 2 Not Available [facility] (Lab) [address] [place], [address], 11/21/2022 16:00:15 11/15/19 23 11/14/2022 TSH, REFLE X FREE T4 TSH 1.53 uIU/m L 0.30-5 .33 Not Available [facility] (Lab) [address], [place], [address], 11/21/2022 16:00:16 11/15/19 23 11/14/2022 VITAM IN B12 vitamin B12 291 pg/mL 180-91 4 Agnes l Range : 180-9 14 pg/mL . Indet ermin ate Range : 145-1 80 pg/mL . Defic ient Range : <=145 pg/mL . Not Available [facility] (Lab) [address], [place], [address], 11/21/2022 16:00:16 11/15/19 23 11/14/2022 VITAM IN D, 25-OH (TOTA L D2/D3 ) vitamin D, 25-hydroxy, total 27.0 NG/mL 30.0-1 00.0 low Sugge stive of Defic iency : <20 ng/mL Sugge stive of Insuf ficie ncy: 20-29 ng/mL Sugge stive of Suffi cienc y: 30-10 0 ng/mL Sugge stive of Toxic ity: >150 ng/mL Not Available [facility] (Lab) [address], [place], [address], 11/21/2022 16:00:17 11/15/19 23 11/14/2022 PROLA CTIN prolactin, total 12.40 NG/mL 4.79-2 3.30 This assay was perfo rmed using [employer] ratio n reage nts and test kits. Value s obtai elzbieta with other assay metho ds or kits canno t be used inter pitts eably . Not Available [facility] (Lab) [address], [place], [address], 11/21/2022 16:00:17 11/15/19 23 11/14/2022 HEMOG LOBIN A1C hemoglobin A1C 5.2 % 0-5.6 The Ameri can Diabe iris Assoc iatio n recom mends that a prima ry goal of thera py celestine d be a HBA1C of < 7% and that physi cians shoul d reeva luate the treat ment regim en in patie nts with HBA1C value s consi stent ly > 8%. <5.7% Agnes l 5.7 - 6.4% Incre ased risk for diabe iris >=6.5 % Diagn ostic of diabe iris <7.0% Goal of thera py >8.0% Actio n sugge sted Not Available [facility] (Lab) [address], [place], [address], 11/21/2022 16:00:17 11/15/19 23 11/14/2022 FSH, LH, ESTRA DIOL estradiol 141.0 pg/mL This assay was perfo rmed using [employer] ratio n reage nts and test kits. Value s obtai elzbieta with other assay metho ds or kits canno t be used inter pitts eably . Femal e Estra diol Range s: Folli cular phase 12.4- 233 pg/mL Ovula tion phase 41.0- 398 pg/mL Lutea l phase 22.3- 341 pg/mL Postm enopa usal< 5-138 pg/mL Healt hy Pregn ant Women 1st Trime ster1 54-32 43 pg/mL 2nd Trime ster1 561-2 1280 pg/mL 3rd Trime ster8 525-> 92309 pg/mL Not Available [facility] (Lab) [address], [place], [address], 11/21/2022 16:00:18 11/15/19 23 11/14/2022 FSH, LH, ESTRA DIOL FSH 6.0 mIU/m L This assay was perfo rmed using [employer] ratio n reage nts and test kits. Value s obtai elzbieta with other assay metho ds or kits canno t be used inter pitts eably . Femal es Folli cular : 3.5-1 2.5 mIU/m L Ovula tion: 4.7-2 1.5 mIU/m L Lutea l: 1.7-7 .7 mIU/m L Postm enopa use: 25.8- 134.8 mIU/m L Not Available [facility] (Lab) [address], [place], [address], 11/21/2022 16:00:18 11/15/19 23 11/14/2022 FSH, LH, ESTRA DIOL LH 13.1 mIU/m L This assay was perfo rmed using [employer] ratio n reage nts and test kits. Value s obtai elzbieta with other assay metho ds or kits canno t be used inter pitts eably . Femal es Mid-F ollic ular: 2.4-1 2.6 mIU/m L Mid-C ycle: 14.0- 95.6 mIU/m L Mid-L uteal : 1.0-1 1.4 mIU/m L Postm enopa use: 7.7-5 8.5 mIU/m L Not Available [facility] (Lab) [address], [place], [address], 11/21/2022 16:00:18 11/15/19 23 11/14/2022 17-OH PROGE STERO NE 17-hydroxypr ogesterone, lc/MS/MS 27 NG/dL Adult Femal e Refer ence Range s for 17-Hy droxy proge stero ne: Pre-M enopa usal Mid Folli cular : 23-10 2 ng/dL Pre-M enopa usal Surge : 67-34 9 ng/dL Pre-M enopa usal Mid Lutea l: 139-4 31 ng/dL Postm enopa usal Phase : < or = 45 ng/dL Pregn shelbi: First Trime ster: 78-45 7 ng/dL Secon d Trime ster: 90-35 7 ng/dL Third Trime ster: 144-5 78 ng/dL This test was devel oped and its yonathan tical perfo rmanc e johann cteri stics have been deter mined by [facility] [place] [place] . It has not been clear ed or appro malachi by FDA. This assay has been valid ated pursu ant to the CLIA regul ation s and is used for clini nahomy purpo ses. Perfo rming Organ izati on Infor matio n: Site ID: [id number] Name: [facility]el [facility] [place] , Addre ss: [id number] [place] [address] Direc tor: Carissa damian MD,Ph D,ERIKA Not Available [facility] (Lab) [address], [place], [address], 11/21/2022 16:00:18 11/22/19 23 11/21/2022 IMAGE GUIDE D PAP AND HPV REGAR DLESS image guided Pap, HPV regardless of Pap result SEE RESULT S BELOW CASE REPOR T: Cytol ogy Gynec ologi nahomy Repor t Case: [id number] Autho tripp collins Provi herminio: Glen Lozada Colle cted: 11/21 1512 APPARATUS LINEMAN Order ing Locat ion: [place] Path[facility] Recei malachi: 11/22 0723 First Scree n: Caitlin Omalley, CT Speci men: Scree lyn Pap - Image d, Cervi x STATE MENT OF ADEQU ACY: Satis facto ry for evalu ation Trans forma tion zone compo nent prese nt Parti ally obscu ring infla mmati on prese nt. FINAL DIAGN OSIS: Negat nina for Intra epith elial Aman soriano or Denisa carrillo (NIL) . Elect andres kay d by Caitlin Omalley, CT on 2022 at 10:26 AM ----- ----- ----- ----- ----- ----- ----- ----- ----- ----- ----- ----- ----- ----- ----- ----- ----- ---- HPV RESUL TS: HPV mRNA E6/E7 : No HPV mRNA Detec bonita NOTE: This high risk HPV mRNA assay detec ts fourt een high- risk HPV types (16, 18, 31, 33, 35, 39, 45, 51, 52, 56, 58, 59, 66, 68) witho ut diffe renti ation . COMME NT: This speci men was revie wed by a Cytot echno logis t and/o r Patho logis t (as indic ated in this repor t) after evalu ation using the Thinp rep Imagi ng Syste m. CLINI NAHOMY INFOR MATIO N: Menst rual Statu s: LMP (if appli cable ): Clini nahomy Histo ry/Pr eviou s Pap: Type of Neopl gio (if appli cable ): Signi fican t Clini nahomy Findi ngs: Other Histo ry: Hormo yevgeniy (if appli cable ): PAP EDUCA WINSTON L NOTE: The Pap Test is a scree lyn test with an inher ent false negat nina rate. Liqui d-bas ed sampl ing may decre ase, but will not elimi carolyn, false negat nina resul ts. A negat nina resul t does not precl ude the prese nce and/o r devel opmen t of disea se, since the prese nce of abnor mal cells in the sampl e depen ds on the locat ion of the lesio n and sampl ing techn ique. Osorio nued regul ar scree lyn is the best metho d of cance r preve ntion . If repor bonita cytol ogic findi ng do not corre late with physi nahomy and/o r histo rical findi ngs, furth er inves tigat ion is recom lucero d, as clini yao walsh nted. Not Available [facility] (Lab) [address], [place], [address], 11/24/2022 11:30:47 07/15/19 22 07/14/2021 US, mando s No observ ation record ed. [email or web address] [facility] [address], [place], [address], 07/14/2021 13:06:02 07/15/19 22 07/14/2021 US, trans vagin al No observ ation record ed. [email or web address] [facility] [address], [place], [address], 07/14/2021 13:06:12 07/15/19 22 07/14/2021 US, pelvi s No observ ation record ed. KENNETH [facility] [address], [place], [address], 07/20/2021 14:17:31 12/07/19 22 07/05/2021 imagi ng/di agnos tic resul t No observ ation record ed. [facility] [address] [facility], [place], [address], 12/06/2021 22:46:13 11/16/19 23 11/15/2022 US, pelvi s No observ ation record ed. [email or web address] [facility] [address], [place], [address], 11/15/2022 18:19:54 11/16/19 23 11/15/2022 US, trans vagin al No observ ation record ed. [email or web address] [facility] [address], [place], [address], 11/15/2022 18:19:45 11/16/19 23 11/15/2022 US, pelvi s No observ ation record ed. [email or web address] [facility] [address], [place], [address], 11/23/2022 12:40:00 11/22/19 23 11/21/2022 MAMMO , scree lyn, digit al, bilat eral No observ ation record ed. [email or web address] [address], [place], [address], 11/28/2022 12:10:37 11/23/1911/21/2022 MAMMO , scree lyn, digit al, bilat eral No observ ation record ed. [email or web address] [address], [place], [address], 11/28/2022 11:30:34 11/30/1911/21/2022 MAMMO , scree lyn, digit al, bilat eral No observ ation record ed. [email or web address] [address], [place], [address], 12/05/2022 12:56:28 12/01/1911/21/2022 MAMMO , scree lyn, digit al, bilat eral No observ ation record ed. [address], [place], [address], 12/06/2022 11:33:17 12/20/1912/19/2022 imagi ng/di agnos tic resul t No observ ation record ed. [facility] [address], [place], [address], 12/20/2022 14:36:32 Result Notes None recorded. Problems Name Problem SNOMED Code Status Onset Date Resolution Date Notes Provider Name and Address Organization Details Recorded Time SNOMED CT Concept Completed 201903/05/2020 Encntr for herbologist exam (general) (routine) w/o abn findings;R ecorded Elsewhere: No Locatio n: [facility] Zayra rce: EHR Chroni c: N Practice ID: [id number] Billa ble Time: 09:00:00 AM Trupti Butler [facility] [place] - [facility] 1 11:12:06 Problem Notes None recorded. Procedures Surgical History Date Name Laterality Status Provider Name and Address Organization Details Recorded Time 3 Date of Last Mammogram completed Chayo Espinoer [facility] 02/13/2023 09:25:02 3 Date of Last Pap Smear [facility] 09:23:19 Imaging Results None recorded. Procedure Notes None recorded. Medical Equipment None Reported. Allergies No known drug allergies Medications Name Sig Start Date Stop Date Status Note LastModified by Organization Details LastModified Time insulin syringe 29g x 1/2 1 ml mis insulin syringe 29g x 1/2 1 ml mis c active Not Available Not Available Not Available buspirone 5 mg tablet take 1 tablet by oral route 2 times every day 03/05 completed Prescrib ed Elsewher e: Yes Loca tion: [facility] odify By: suly mac DateTime : 04/01/19 09:00:00 AM Not Available Not Available Not Available venlafaxi ne ER 37.5 mg capsule,e xtended release 24 hr 11/14 completed Not Available Not Available Not Available venlafaxi ne ER 75 mg capsule,e xtended release 24 hr 11/14 completed Not Available Not Available Not Available doxycycli ne hyclate 100 mg capsule 05/04 completed Not Available Not Available Not Available nabumeton e 750 mg tablet 11/14 completed Not Available Not Available Not Available azithromy willard 250 mg tablet 11/21 completed Not Available Not Available Not Available fluconazo le 150 mg tablet take 1 tablet today, another on 07/11 completed Not Available Not Available Not Available benzonata te 200 mg capsule 07/13 completed Not Available Not Available Not Available meloxicam 15 mg tablet 03/19 completed Not Available Not Available Not Available leucovori n calcium 50 mg solution for injection inject by intramus cular route every day 03/05 completed Prescrib ed Elsewher e: Yes [facility] By: suly mac DateTime : 04/01/19 09:00:00 AM Not Available Not Available Not Available prednison e 5 mg tablet 11/14 completed Not Available Not Available Not Available sulfasala zine 500 mg tablet,de layed release 03/05 completed Not Available Not Available Not Available valacyclo vir 500 mg tablet active Not Available Not Available No t Available methotrex ate sodium 25 mg/mL injection solution inject by intramus cular route 2 times every week 09/10 completed Prescrib ed Elsewher e: Yes [facility] By: suly mac DateTime : 04/01/19 09:00:00 AM Not Available Not Available Not Available amoxicill in 875 mg tablet 10/28 completed Not Available Not Available Not Available alprazola m 0.25 mg tablet Take 1 tablet every 6-8 hours by oral route. 11/14 completed Not Available Not Available Not Available methotrex ate sodium 2.5 mg tablet active Not Available Not Available Not Available cephalexi n 500 mg capsule 11/14 completed Not Available Not Available Not Available buspirone 10 mg tablet 03/05 completed Not Available Not Available Not Available diclofena c sodium 75 mg tablet,de layed release 05/04 completed Not Available Not Available Not Available leucovori n calcium 5 mg tablet 03/19 completed Not Available Not Available Not Available folic acid 1 mg tablet active Not Available Not Available Not Available hydroxyzi ne HCl 25 mg tablet 11/14 completed Not Available Not Available Not Available mupirocin 2 % topical ointment 11/14 completed Not Available Not Available Not Available Enbrel 25 mg (1 mL) subcutane ous powder for solution inject 1 millilit er by subcutan eous route 2 times every week 72-96 hours apart 11/14 completed Prescrib ed Elsewher e: Yes [facility] odify By: suly mac DateTime : 04/01/19 09:00:00 AM Not Available Not Available Not Available azelastin e 137 mcg (0.1 %) nasal spray 11/14 completed Not Available Not Available Not Available hydroxych loroquine 200 mg tablet 05/04 completed Not Available Not Available Not Available methylpre dnisolone 4 mg tablets in a dose pack 11/14 completed Not Available Not Available Not Available Vitamin D2 1,250 mcg (50,000 unit) capsule Take 1 capsule every week by oral route for 90 days. 2022 active Not Available Not Available Not Avai lable fluticaso ne propionat e 50 mcg/actua tion nasal spray,william pension 11/14 completed Not Available Not Available Not Available naproxen 500 mg tablet 11/14 completed Not Available Not Available Not Available amoxicill in 875 mg-potass ium clavulana te 125 mg tablet 07/13 completed Not Available Not Available Not Available escitalop abdullahi 20 mg tablet 09/10 completed Not Available Not Available Not Available methotrex ate sodium (PF) 25 mg/mL injection solution 03/05 completed Not Available Not Available Not Available bupropion HCl XL 150 mg 24 hr tablet, extended release TAKE 1 TABLET BY MOUTH EVERY DAY IN THE MORNING active Not Available Not Available No t Available escitalop abdullahi 5 mg tablet take 1 tablet by oral route every day 11/14 completed Not Available Not Available Not Available duloxetin e 30 mg capsule,d elayed release Take 1 capsule every day by oral route. 11/14 completed Not Available Not Available Not Available duloxetin e 60 mg capsule,d elayed release Take 1 capsule every day by oral route. 11/14 completed Not Available Not Available Not Available leucovori n calcium 10/28 completed Not Available Not Available Not Available methotrex ate 10/28 completed Not Available Not Available Not Available buspirone 10/28 completed Not Available Not Available Not Available Enbrel 10/28 completed Not Available Not Available Not Available Lexapro 03/05 completed Not Available Not Available Not Available aripipraz ole 2 mg tablet 11/14 completed Not Available Not Available Not Available Enbrel SureClick 50 mg/mL (1 mL) subcutane ous pen injector 11/14 completed Not Available Not Available Not Available tranexami c acid 650 mg tablet Take 2 tablets 3 times a day by oral route for 5 days. 11/14 completed Not Available Not Available Not Available vilazodon e 40 mg tablet TAKE 1 TABLET BY MOUTH EVERY DAY AT DINNER active Not Available Not Available No t Available vilazodon e 20 mg tablet 11/14 completed Not Available Not Available Not Available Humira(CF ) Pen 40 mg/0.4 mL subcutane ous kit active Not Available Not Available Not Available OneTouch Delica Plus Lancet 33 gauge active Not Available Not Available Not Available Slynd 4 mg (28) tablet active Not Available Not Available Not Available Vitals Date Recorded Body height Body mass index (BMI) Body weight Systolic And Diastolic Provider Name and Address Organization Details Last Updated DateTime 11/14/2022 160.02 cm 42.2 kg/m2 559491.98 g 115/81 mm[Hg] Trupti Butler [facility] 11/14/2022 17:17:21 Date Recorded Body height Body mass index (BMI) Body weight Systolic And Diastolic Provider Name and Address Organization Details Last Updated DateTime 11/21/2022 160.02 cm 41.8 kg/m2 366643.8 g 115/77 mm[Hg] Trupti Butlre [facility] 11/21/2022 09:10:29 Date Recorded Body height Body mass index (BMI) Body weight Systolic And Diastolic Provider Name and Address Organization Details Last Updated DateTime 02/13/2023 160.02 cm 42.7 kg/m2 771255.76 g 110/80 mm[Hg] Chayo Escoto [facility] 02/13/2023 09:21:39 Social History Question Answer Notes LastModified by Organizat ion Details LastModified Time Tobacco Smoking Status Never Smoker CORETTA CARRILLO eddie, [facility] 11/21/2022 09:03:05 If You Are , What Was Your Level Of Alcohol Consumption Prior To ? None Information not available 11/21/2022 Are You Blind Or Do You Have Difficulty Seeing? No [email or web address] Information n ot available 05/04/2020 What Is Your Level Of Caffeine Consumption? Occasional [email or web address] Information not available 05/04/2020 In The 14 Days Before Symptom Onset, Have You Had Close Contact With A Laboratory-confirm ed COVID-19 While That Case Was Ill? No [email or web address] Information n ot available 05/04/2020 In The 14 Days Before Symptom Onset, Have You Had Close Contact With A Person Who Is Under Investigation For COVID-19 While That Person Was Ill? No [email or web address] Information not available 05/04/2020 Have You Been To An Area Known To Be High Risk For COVID-19? No [email or web address] Information not available 05/04/2020 Are You Deaf Or Do You Have Serious Difficulty Hearing? No [email or web address] Information not available 05/04/2020 What Type Of Diet Are You Following? REGULAR [email or web address] Information n ot available 05/04/2020 What Was The Date Of Your Most Recent Tobacco Screening? 11/21/2022 [email or web address] Information not available 11/21/2022 Have You Ever Been Counseled For Unhealthy Alcohol Use? No Information not available 11/21/2022 Do You Use Your Seat Belt Or Car Seat Routinely? Yes [email or web address] Information not available 05/04/2020 Do You Have Smoke And Carbon Monoxide Detectors In Your Home? Yes [email or web address] Information not available 05/04/2020 How Much Tobacco Do You Smoke? No [email or web address] Information not available 10/29/2019 Do You Use Sunscreen Routinely? Yes [email or web address] Information not available 05/04/2020 Has Tobacco Cessation Counseling Been Provided? No Information not available 11/21/2022 Do You Have Difficulty Walking Or Climbing Stairs? No Information not available 11/21/2022 Sex: Unknown Functional Status Question Answer Note LastModified by Organizat ion Details LastModified Time Do you use any illicit or recreational drugs? No [email or web address] Information not available 03/19/2020 Do you or have you ever used any other forms of tobacco or nicotine? No Information not available 11/21/2022 What is your level of alcohol consumption? Occasional [email or web address] Information not available 10/29/2019 Do you or have you ever used smokeless tobacco? Never used smokeless tobacco Information not available 11/21/2022 Are you able to walk independently without assistance or assistive devices? YESWOREST [email or web address] Information not available 05/04/2020 Are you able to care for yourself independently? Yes Information not available 11/21/2022 Do you have difficulty dressing, bathing, grooming, or toileting? No Information not available 11/21/2022 Do you or have you ever used e-cigarettes or vape? Never used electronic cigarettes Information not available 11/21/2022 What is your exercise level? Occasional [email or web address] Information not available 10/29/2019 Mental Status Question Answer Note LastModified by Organization D etails LastModified Time Do you feel stressed (tense, restless, nervous, or anxious, or unable to sleep at night)? [id number] [email or web address] Information not available 05/04/2020 Family History Relationship Description Onset Age of this Age Resolved Age Notes LastModified by Organization Details LastModified Time Mother Hypertensive disorder [email or web address] Not available 11/21 09:10:41 Father Diabetes mellitus [email or web address] Not available 11/21 09:10:41 Paternal Grandmother Carcinoma in situ of breast Not available 11/21 09:10:41 Brother Infertile [email or web address] Not avail able 11/21/2022 09:10:41 Medical History Condition Response Allergies (Food, seasonal, environmental ) Y Other N Breast Cancer N Drug/Latex Allergies/Reactions N Blood Transfusion N Dermatologic Disorders N Lung Disease N Defects or Inherited Disease N Breast Problem N Gestational Diabetes N Hematologic disorders N Anesthesia Complications N History of STI N Deep Vein Thrombosis N Polycystic ovary syndrome N Anxiety Disorder Y Autoimmune disease N Arthritis Y Infertility N Polyps N Acid Reflux (GERD) N History of abnormal pap N Cancer N Stroke N Varicosities N Neurologic/Epilepsy Y Endometriosis N High Cholesterol N Headaches N Fibromyalgia N Kidney Disease N Heart Problems N Kidney or Bladder Problems N Thyroid Problems N GI Problems N Eating Disorder N Anemia N Art (IVF or FET) N Psychiatric Illness Y Ovarian Cancer N Diabetes N Pulmonary (TB, Asthma) N Hepatitis/Liver Disease N No Past Medical History N Eczema N Urinary Tract Infection N Abuse/Domestic Violence N Asthma N Trauma/Violence N Depression/ depression Y Heart Disease N Pre-Eclampsia N Hypertension N Osteoporosis N Thrombophilias N Gynecological History Statement/Question Response Abnormal Pap N Date of Last Mammogram 12/19/2022 Flow Moderate Date of LMP 01/24/2023 Was last menstrual period normal N STIs/STDs N HPV Vaccine N Current Control Method BCPs Are cycles usually normal Y Frequency of Cycle (Q days) 32 Sexually Active? Y Menses Monthly Y Date of Last Pap Smear 11/21/2022 Sexual Problems? N Desired Control Method Partner Vas ectomy LMP Approximate Obstetrics History GPAL:G 3 P 3 0 0 3 Type Value Full Term 3 Living 3 Total 3 Past Encounters Encounter ID Performer Location Encounter Start Date Encounter Closed Date Diagnosis/Indication Diagnosis SNOMED-CT Code Diagnosis ICD10 Code Diagnosis IMO Codes Diagnosis Note [id number] Unique Bedoya [facility] [address],[facility] [address] 08/07/2019 14:34:51 08/07/2019 16:24:26 Mastodynia of bilateral breasts 1424710545 5161933 N64.4 Bilateral breast tenderness on exam Imaging recommende d as this extends past LMP If wnl, consider trial of [place] oil daily for mastodynia . If necessary can refer to breast specilaist . Pain in pelvis 73828893 R10.2 We agreed to pursue TVUS for right pelvic pain found on exam & subjective complaints to r/o SURGICAL GARMENT ASSEMBLY SUPERVISOR related issues. [id number] Reji Moore MD [facility] [address],[place] [address] 08/25/2019 13:57:35 08/25/2019 17:32:04 Pain in pelvis 36035245 R10.2 [id number] Unique Bedoya [facility] [address],[facility] [address] 08/25/2019 14:42:19 08/25/2019 15:49:02 Abnormal uterine bleeding [id number] 9100 N93.9 Patient here to f/u for TVUS of AUB. TVUS was wnl. She declines need for updated labs as her RA specialist does extensive labs including TSH/vitami n d etc every 3mos due to the medication s she is on. She is not interested in IUD (2 failed attempts); and not wanting hormonal BC. +partner vasectomy She is rohan collins MD consult for AUB with possible discussion Endometria l ablation. She will call if interested . She will call if extensive changes in her menses. Has to get daughters surgery done first. Time spent in visit is a total of 15 mins with at least 50% of visit consisting of counseling and review of plan of care. [id number] Ada Kowalski CNM [address] [address] 10/29/2019 09:34:57 10/29/2019 11:11:57 Anxiety 06749396 F41.9 decided to stop buspar because no difference with it. will keep lexapro daily and add wellbutrin xl 150 daily, call if any questions, to ED if any suicidal thoughts, will plan on f/u in 6 weeks, if no improvemen t may switch to cymbalta [id number] [address],[place] [address] 01/21/2020 12:14:56 01/21/2020 12:57:00 Anxiety 55449888 F41.9 will keep lexapro daily and increase wellbutrin xl 150 BID call if any questions, to ED if any suicidal thoughts, will plan on f/u wwe in 2020, plan mammogram, prefers 3 mo supply [id number] Ada Kowalski CNM [facility] [address],[place] [address] 03/05/2020 10:48:21 03/05/2020 12:39:16 Anxiety 06154715 F41.9 start cymbalta, and call if any worsening sxs or any mood changes, f/u 6-8 weeks or sooner if needed [id number] Ada Kowalski CNM [facility] [address],[place] [address] 03/19/2020 09:33:09 03/19/2020 10:20:19 Anxiety 43787871 F41.9 Candidiasis of vagina 72 977527 B37.3 [id number] Ada Kowalski CNM [facility] [address],[place] [address] 05/04/2020 11:44:34 05/04/2020 13:37:53 Anxiety 70935606 F41.9 will add 30mg at hs to help with am, if needs higher will need to refer, call if any problems f/u 12 weeks Menorrhagia 537259572 N9 2.0 plan labs and ultrasound [id number] Ada Kowalski, [facility] [address],[place] [address] 06/02/2020 15:29:21 06/06/2020 22:35:10 Anxiety 63380941 F41.9 continue current dose if needs higher dose will need to refer, call if any problems f/u wwe Dysmenorrhea 013867444 N 94.6 cont to monitor, discussed mirena, ablation, pt will monitor [id number] Reji Moore MD [facility] [address],[place] [address] 06/02/2020 15:28:37 06/02/2020 16:40:42 Abnormal uterine bleeding 7955522039 9100 N93.9 R10.2 [id number] Ada Kowalski, [facility] [address],[place] [address] 09/10/2020 10:30:12 09/10/2020 13:39:03 Mixed anxiety and depressive disorder 906708485 F41.8 [id number] Unique Bedoya [facility] [address],[place] [address] 07/13/2021 09:46:22 07/13/2021 11:48:17 Menorrhagia 967725927 N92.0 Today we will schedule [place] [facility]Releas e form signed to get labs from Endocrinol ogist Dr. Memo farrar & Marybeth Rolon, [facility] PCP.Need to see if any further labs need to be completed. Will then f/u to discuss & possible EMBx at that visit as well. Trial of Lysteda sent while we are evaluting and getting her plan of care situated for her next period.Cou nseled on medication R/B's, Most common side effects, & use. All questions were answered to patient satisfacti on. [id number] Reji Moore MD [facility] [address],[place] [address] 07/14/2021 12:28:28 07/14/2021 13:07:13 Menorrhagia 792648297 N92.0 [id number] Unique Bedoya , [place] [address],[place] [address] 11/14/2022 17:07:16 11/15/2022 09:56:20 Premenstrual tension syndrome 34051138 N94.3 Menorrhagia 954870210 N9 2.0 Adult [facility] th examination 653090758 Z00.00 Vitamin D deficiency 347 17102 E55.9 Vitamin B1 2 deficiency (non anemic) 52150323 E53.8 Headache 46710162 R51.9 Palpitatio ns worse with onset of headache?? Neurologis tDoesn't have to take anything for them.Could be allergy related [id number] Reji Moore MD [facility] [address],[place] [address] 11/15/2022 17:20:21 11/16/2022 12:45:11 Menorrhagia 270547454 N92.0 [id number] Unique Bedoya , [facility] [address],[place] [address] 11/21/2022 09:01:07 11/21/2022 14:28:22 Gynecologic examination 72248268 Z01.419 Suggested Calcium with Vitamin D 1200-1500m g daily. Patient advised to get an annual flu shot in the fall and she could obtain at [facility] or [facility] take care clinic. Also to obtain TDap vaccinatio n if you have not had one in the last 10 years. Recommend yearly mammograms . Encouraged monthly self breast exams. Encourage safe sexual practices, to use condoms and limit partners if not already in a monogamous relationsh ip. Engage in daily exercise of low impact aerobic exercise 45-60 minutes 4-5 times weekly. Avoid tobacco and illicit drugs as well as using moderation with alcohol intake less than 1-2 8 oz beverages daily. This lifestyle behavior pattern will lead to less health conditions and longer life span. If BMI greater than 25 weight watchers or dietary consult advised. All questions have been answered. Patient appears to understand informatio n, but if you have any questions please call or respond to this email. Pap/hpv sentSTD Screen declinedGe netic Screen discussedC olon Screen PCPDexa Screen naRoutine Labs reviewedUS reviewedMa mmo ordered Menorrhagia 753357675 N9 2.0 Today we discussed use of SLYND for menorrhagi a and PMS.Consid er ADHD treatment addition to Viibryd she is on.F/U x 3mos med check in person.Not ready for IUD/Endo ablation at this time. Counseled on medication R/B's, Most common side effects, & use. All questions were answered to patient satisfacti on. Screening mammography 24 259745 Z12.31 Vitamin D deficiency 347 54692 E55.9 [id number] Unique Bedoya , [facility] [address],[place] [address] 02/13/2023 09:14:13 02/13/2023 09:58:28 Menorrhagia 308906972 N92.0 Patient is here today for a medicaton check of control. She voices goals of therapy have been met with use of this therapy. She denies neg side effects. She is eating, drinking, sleeping well; moods are stable & periods are well regulated. Wishes to continue this method of BC. Appropriat e to continue this medication . Failed micronor -- older POPCurrent ly on SLYND.Will send to [facility] if unable to push this through.Ga ve 2mos of samples to hold her over until we figure out if there's any issues with pharmacy. Time spent in visit is a total of 18 mins with at least 50% of visit consisting of counseling and review of plan of care. Health Concerns Section Related Observation LastModified by Organization Detai ls LastModified Time None Recorded Concern Status LastModified by Organization Details LastModified Time None Recorded Advance Directives Directive None Recorded Payers Insurance Date Sequence Insurance Name Policy Number Policy Valente Covered Member ID Valente Member ID Guarantor Name 10/25/2024 PAYMENT PLAN Josi Cavanaugh Sharif 02/13/2023 1 [place] [id number] Josi Cavanaugh Sharif [id number] Josi Cavanaugh Sharif 03/19/2020 *SELF PAY* Santos Cavanaugh Sharif 10/26/2020 PAYMENT PLAN Josi Cavanaugh Sharif 01/01/2021 PAYMENT PLAN Josi Cavanaugh Sharif 02/09/2022 PAYMENT PLAN Josi Cavanaugh Sharif 02/13/2023 PAYMENT PLAN Josi Cavanaugh Sharif 07/15/2024 PAYMENT PLAN Josi Cavanaugh Sharif Notes Date Note Type Note Provider Name and Address Organization Details Recorded Time 11/15/19 23 text/htm l ROS as noted in the HPI Josi is a 42yo white perimenopause age female here today with concerns of menorrhagia, increasingly painful menses; heart palpitations the week prior to onset of menses along with suspected PMDD/PMS. She has a hx of anxiety/depression; she is on medication for this now.Reports, This anxiety feels different.More emotional; cried on/off x 4 days prior to onset of her last menses.Very short patience.Increase tension headaches can also happen.Been tracking these sx's monthly >6mos and all seem to happen 7-10d prior to onset of menses. Has seen endocrinology.PsychiatryCar diologyAll gave a clean bill of healthTested for thyroid issues/diabetesHas Hx of RA-takes humira Neg pain of abd/pelvis/flankNeg urinary sx'sNeg GI sx'sNeg N/V/F/C/DNeg Vag d/c, odor, irritation, itchingDenies recent changes in life/stress levels that would increase stress/anxiety. Unique Bedoya, [place]- [address], [place], [address], [facility] 11/14/2022 19:10:40 11/22/19 23 text/htm l Annual GYNReported by PatientGenitourinary symptomsFor menstrual cycle, patient reportsmenorrhagia. For urinary symptoms, patient reportsno hematuriaandno incontinence. For vulva, patient reportsno genital lesion. For vagina, patient reportsnormal vaginal discharge.Breast symptomsFor breast, patient reportsno breast pain,no breast lump, andno nipple discharge.ContraceptionFor current contraception, patient reportssatisfied with current contraceptionandpartner had vasectomy.Endocrine symptomsFor sexual complaints, patient reportsno sexual complaints,no pain during intercourse, andnormal libido. For menopausal symptoms, patient reportsno menopausal symptomsandnormal vaginal lubrication.Psychological symptomsFor psychological symptoms, patient reportsno depression,no anxiety, andno pmdd.Preventative measuresFor preventive measures, patient reportsencourage self breast examination,encourage regular exercise,encourage no tobacco use,encourage regular mammograms starting age 40,followed with yearly pap smears, andneeds to schedule mammogram. Unique Bedoya [facility] [address], [place], [address], [facility] 11/21/2022 14:12:15 02/14/20 23 text/htm l ROS as noted in the HPI Here today for med check of SLYND for heavy menses. Unique Bedoya [facility] [address], [place], [address], [facility] 02/13/2023 09:57:12 OBGyn Episode Ob Episode Information Episode Created Date Number of Fetuses Patient Bloodtype Patient rh Status Prepregnancy Weight lbs Domestic Partner Domestic Partner Phone Father Name Digital Photo Printer Status 10/29/19 20 1 CLOSED Fetus Data First Name Last Name Admitted to NICU Weight (g) Sex Living Outcome Pediatric Complications Fetus ID Race Codes Race Delivery Type 3345.24 1 F Full Term 4243 Vaginal Delivery Nakul Calculation Initial Nakul Date Initial Exam Date Initial Exam Provider Initial Ultrasound Date Last Menstrual Period Date Ultra Sound Weeks Gestation 0 Eighteen To Twenty Week Nakul Update Ultra Sound Date Fundal Height At Umbil Quickening Date Ultra Sound Latest Weeks Gestation Final Nakul Confirmed By Final Nakul Confirmed Date Final Nakul Date Ultra Sound Latest Days Gestation 0 0 Menstrual History Last Menstrual Date Menses Monthly On Bcp Conception Prior Menses Frequency Hcg Plus Date Menarche Onset Age Delivery Information Delivery Date Delivery Type Labor Anesthesia Weeks Gestation Incision Type Labor Labor Length Hrs Delivered By Post Complications Tubal Sterilization Discharge Date Comments 4 39 Discharge Information Feeding Method Contraceptive Method Maternal HG B and HCT Levels Ob Episode Information Episode Created Date Number of Fetuses Patient Bloodtype Patient rh Status Prepregnancy Weight lbs Domestic Partner Domestic Partner Phone Father Name Digital Photo Printer Status 10/29/19 20 1 CLOSED Fetus Data First Name Last Name Admitted to NICU Weight (g) Sex Living Outcome Pediatric Complications Fetus ID Race Codes Race Delivery Type 3345.24 1 F Full Term 4242 Vaginal Delivery Nakul Calculation Initial Nakul Date Initial Exam Date Initial Exam Provider Initial Ultrasound Date Last Menstrual Period Date Ultra Sound Weeks Gestation 0 Eighteen To Twenty Week Nakul Update Ultra Sound Date Fundal Height At [place]mbil Quickening Date Ultra Sound Latest Weeks Gestation Final Nakul Confirmed By Final Nakul Confirmed Date Final Nakul Date Ultra Sound Latest Days Gestation 0 0 Menstrual History Last Menstrual Date Menses Monthly On Bcp Conception Prior Menses Frequency Hcg Plus Date Menarche Onset Age Delivery Information Delivery Date Delivery Type Labor Anesthesia Weeks Gestation Incision Type Labor Labor Length Hrs Delivered By Post Complications Tubal Sterilization Discharge Date Comments 8 39 Discharge Information Feeding Method Contraceptive Method Maternal HG B and HCT Levels Ob Episode Information Episode Created Date Number of Fetuses Patient Bloodtype Patient rh Status Prepregnancy Weight lbs Domestic Partner Domestic Partner Phone Father Name Digital Photo Printer Status 10/29/19 20 1 CLOSED Fetus Data First Name Last Name Admitted to NICU Weight (g) Sex Living Outcome Pediatric Complications Fetus ID Race Codes Race Delivery Type 3883.65 [id number] M Full Term [id number] Vaginal Delivery Nakul Calculation Initial Nakul Date Initial Exam Date Initial Exam Provider Initial Ultrasound Date Last Menstrual Period Date Ultra Sound Weeks Gestation 0 Eighteen To Twenty Week Nakul Update Ultra Sound Date Fundal Height At [place]mb[place] Quickening Date Ultra Sound Latest Weeks Gestation Final Nakul Confirmed By Final Nakul Confirmed Date Final Nakul Date Ultra Sound Latest Days Gestation 0 0 Menstrual History Last Menstrual Date Menses Monthly On Bcp Conception Prior Menses Frequency Hcg Plus Date Menarche Onset Age Delivery Information Delivery Date Delivery Type Labor Anesthesia Weeks Gestation Incision Type Labor Labor Length Hrs Delivered By Post Complications Tubal Sterilization Discharge Date Comments 1 39 Discharge Information Feeding Method Contraceptive Method Maternal HG B and HCT Levels
== END 2025-01-19 14:08 | disposition home or self-care (01) ==
PROVIDERS: Emergency Provider Nurse Practitioner
DX: J40 Bronchitis, not specified as acute or chronic (principal); J01.90 Acute sinusitis, unspecified; M06.9 Rheumatoid arthritis, unspecified
CPT/HCPCS: 99203; G0463